=== PATIENT | female | born 1970 | race Caucasian/White ===

== ENCOUNTER 2018-07-12 18:18 | Emergency (ER) | payer BC, OTHER ==
[2018-07-12] MEDS ORDERED: Sodium Chloride 0.9% 2.5 ML Syringe FLUSH PRN (18:28)
[2018-07-12] MEDS ORDERED: Sodium Chloride 0.9% 10 ML Syringe FLUSH PRN (18:28)
--- NOTE | 2018-07-12 18:28 | EDM.PDOC ---
<Deedee Marquez - Last Filed: 07/12/18 18:57> ED HPI GENERAL MEDICAL PROBLEM - General Stated Complaint: CHEST PAINS Time Seen by Provider: 07/12/18 18:20 Source of Information: Reports: Patient History Limitations: Reports: No Limitations - History of Present Illness INITIAL COMMENTS - FREE TEXT/NARRATIVE: History of present illness: []She started having substernal, nonradiating chest pressure since 7 PM last night that has been continuous. At it's worst she rates it a 8/10 and is now 4/ 10. Does not have any known coronary artery disease but was diagnosed with a rapid heart beat in [place] in March. She was put on metoprolol at that time but did not start it until this month. She has been dealing with sinus drainage , she denies any abdominal pain, nausea, vomiting, fevers, chills or diarrhea. Review of systems: As per history of present illness and below otherwise all systems reviewed and negative. Past medical history: As per history of present illness and as reviewed below otherwise noncontributory. Surgical history: As per history of present illness and as reviewed below otherwise noncontributory. Social history: No reported history of drug or alcohol abuse. Family history: As per history of present illness and as reviewed below otherwise noncontributory. Physical exam: General: Well developed, well nourished in NAD HEENT: Atraumatic, normocephalic, pupils reactive, negative for conjunctival pallor or scleral icterus, mucous membranes moist, throat clear, neck supple, nontender, trachea midline. Lungs: Clear to auscultation, breath sounds equal bilaterally, chest with reproducible chest pain Heart: S1S2, regular, negative for clicks, rubs, or JVD. Abdomen: NABS, Soft, nondistended, nontender. Negative for masses or hepatosplenomegaly. Negative for costovertebral tenderness. Pelvis: Stable nontender. Genitourinary: Deferred. Rectal: Deferred. Extremities: Atraumatic, negative for cords or calf pain. Neurovascular unremarkable. Neuro: Awake, alert, oriented. Cranial nerves II through XII unremarkable. Cerebellum unremarkable. Motor and sensory unremarkable throughout. Exam nonfocal. Skin:warm and dry Diagnostics: EKG, CBC, chemistry, troponin, coags, chest x-ray Therapeutics: Aspirin, nitroglycerin ED Course: Patient is pain free after nitroglycerin. Patient is signed out to Dr. De La Garza to check results and disposition patient Impression: Chest pain Prescriptions: Nitroglycerin Plan: Definitive disposition and diagnosis as appropriate pending reevaluation and review of above. Chest Pain Score (Numeric/FACES): 4 - Related Data Allergies Allergy/AdvReac Type Severity Reaction Status Date / Time acetaminophen Allergy Rash Verified 07/12/18 18:27 [From Darvocet-N] propoxyphene Allergy Rash Verified 07/12/18 18:27 [From Darvocet-N] Home Meds: Home Meds Dapagliflozin Propanediol [Farxiga] 10 mg PO DAILY 07/12/18 [History] Dulaglutide [Trulicity] 1.5 mg SQ DAILY 07/12/18 [History] Insulin Degludec [Tresiba] 44 units DAILY 07/12/18 [History] Metoprolol Tartrate 12.5 mg PO BID 07/12/18 [History] Montelukast [Singulair] 1 tab DAILY 07/12/18 [History] Nitroglycerin [Nitrostat] 0.4 mg SL ASDIRECTED PRN #1 bottle 07/12/18 [Rx] atorvaSTATin [Lipitor] 10 mg PO DAILY 07/12/18 [History] ED ROS GENERAL - Review of Systems Review Of Systems: ROS reveals no pertinent complaints other than HPI. ED EXAM, GENERAL - Physical Exam Exam: See Below (The history of present illness) Course - Vital Signs Last Recorded V/S: Last Vital Signs Temp 36.3 C 07/12/18 18:51 Pulse 109 H 07/12/18 18:51 Resp 18 07/12/18 18:51 BP 121/70 07/12/18 18:51 Pulse Ox 94 L 07/12/18 18:51 - Orders/Labs/Meds Orders: Active Orders 24 hr Category Date Time Status Cardiac Monitoring [RC] . DIRECTED Care 07/12/18 18:29 Active EKG Documentation Completion [RC] STAT Care 07/12/18 18:29 Active Sodium Chloride 0.9% [Saline Flush] Med 07/12/18 18:28 Active 10 ml FLUSH ASDIRECTED PRN Sodium Chloride 0.9% [Saline Flush] Med 07/12/18 18:28 Active 2.5 ml FLUSH ASDIRECTED PRN Saline Lock Insert [OM.PC] Stat Oth 07/12/18 18:29 Ordered Medication Orders Sodium Chloride (Saline Flush) 10 ml FLUSH ASDIRECTED PRN PRN Reason: Keep Vein Open Sodium Chloride (Saline Flush) 2.5 ml FLUSH ASDIRECTED PRN PRN Reason: Keep Vein Open Labs: Laboratory Tests 07/12/18 07/12/18 07/12/18 Range/Units 18:35 18:35 18:35 WBC 5.49 (4.0-11.0) K/uL RBC 5.60 (4.30-5.90) M/uL Hgb 15.7 (12.0-16.0) g/dL Hct 45.4 (36.0-46.0) % MCV 81.1 (80.0-98.0) fL MCH 28.0 (27.0-32.0) pg MCHC 34.6 (31.0-37.0) g/dL RDW Std Deviation 39.2 (28.0-62.0) fl RDW Coeff of Stacy 13 (11.0-15.0) % Plt Count 128 L (150-400) K/uL MPV 9.60 (7.40-12.00) fL Neut % (Auto) 57.0 (48.0-80.0) % Lymph % (Auto) 26.4 (16.0-40.0) % Carlton % (Auto) 14.0 (0.0-15.0) % Eos % (Auto) 2.2 (0.0-7.0) % Baso % (Auto) 0.4 (0.0-1.5) % Neut # (Auto) 3.1 (1.4-5.7) K/uL Lymph # (Auto) 1.5 (0.6-2.4) K/uL Carlton # (Auto) 0.8 (0.0-0.8) K/uL Eos # (Auto) 0.1 (0.0-0.7) K/uL Baso # (Auto) 0.0 (0.0-0.1) K/uL Nucleated RBC % 0.0 /100WBC Nucleated RBCs # 0 K/uL INR 0.96 APTT 26.1 (18.6-31.3) SEC Sodium 143 (136-145) mmol/L Potassium 3.7 (3.5-5.1) mmol/L Chloride 106 (98-107) mmol/L Carbon Dioxide 29.0 (21.0-32.0) mmol/L BUN 14 (7.0-18.0) mg/dL Creatinine 0.7 (0.6-1.0) mg/dL Est Cr Clr Drug Dosing 80.42 mL/min Estimated GFR (MDRD) > 60.0 ml/min Glucose 143 H (74-106) mg/dL Calcium 8.9 (8.5-10.1) mg/dL Total Bilirubin 1.0 (0.2-1.0) mg/dL AST 9 L (15-37) IU/L ALT 31 (14-63) IU/L Alkaline Phosphatase 120 H (46-116) U/L Troponin I < 0.050 (0.000-0.056) ng/mL Total Protein 7.4 (6.4-8.2) g/dL Albumin 3.8 (3.4-5.0) g/dL Globulin 3.6 (2.6-4.0) g/dL Albumin/Globulin Ratio 1.1 (0.9-1.6) Meds: Medications Generic Name Dose Route Start Last Admin Trade Name Freq PRN Reason Stop Dose Admin Sodium Chloride 10 ml 07/12/18 18:28 Saline Flush FLUSH ASDIRECTED PRN Keep Vein Open Sodium Chloride 2.5 ml 07/12/18 18:28 Saline Flush FLUSH ASDIRECTED PRN Keep Vein Open Discontinued Medications Generic Name Dose Route Start Last Admin Trade Name Freq PRN Reason Stop Dose Admin Aspirin 324 mg 07/12/18 18:29 07/12/18 18:34 Aspirin PO 07/12/18 18:30 324 mg ONETIME ONE Administration Nitroglycerin 0.4 mg 07/12/18 18:31 07/12/18 18:47 Nitrostat SL 0.4 mg Q5M PRN Administration Chest Pain Departure - Departure Disposition: Home, Self-Care 01 Condition: Good Clinical Impression: Chest pain Prescriptions: Nitroglycerin [Nitrostat] 0.4 mg SL ASDIRECTED PRN #1 bottle PRN Reason: Pain Referrals: Jazmyn Ferguson NP [Primary Care Provider] - Additional Instructions: The following information is given to patients seen in the emergency department who are being discharged to home. This information is to outline your options for follow-up care. We provide all patients seen in our emergency department with a follow-up referral. The need for follow-up, as well as the timing and circumstances, are variable depending upon the specifics of your emergency department visit. If you don't have a primary care physician on staff, we will provide you with a referral. We always advise you to contact your personal physician following an emergency department visit to inform them of the circumstance of the visit and for follow-up with them and/or the need for any referrals to a consulting specialist. The emergency department will also refer you to a specialist when appropriate. This referral assures that you have the opportunity for follow-up care with a specialist. All of these measure are taken in an effort to provide you with optimal care, which includes your follow-up. Under all circumstances we always encourage you to contact your private physician who remains a resource for coordinating your care. When calling for follow-up care, please make the office aware that this follow-up is from your recent emergency room visit. If for any reason you are refused follow-up, please contact the [facility] Emergency Department at and asked to speak to the emergency department charge nurse. Take meds as directed, follow up with your primary care physician, return to ER if symptoms worsen or change. [facility] [address] [place] [id number] <Amanda De La Garza - Last Filed: 07/12/18 19:12> ED HPI GENERAL MEDICAL PROBLEM - History of Present Illness INITIAL COMMENTS - FREE TEXT/NARRATIVE: Testing results are within normal limits and per the direction of Dr. Marquez the patient will be discharged home. ED ROS GENERAL - Review of Systems Review Of Systems: ROS reveals no pertinent complaints other than HPI. ED EXAM, GENERAL - Physical Exam Exam: See Below Departure - Departure Time of Disposition: 19:12 Condition: Good
[2018-07-12] MEDS ORDERED: Aspirin 81 MG Tab.Chew PO ONE (18:29)
[2018-07-12] MEDS: Nitroglycerin 0.4 MG Tab.SL SL PRN ×3 (18:37→18:47)
--- NOTE | 2018-07-12 19:05 | CR ---
INDICATION: Chest pain and shortness of breath TECHNIQUE: Chest 1 view COMPARISON: None FINDINGS: Cardiovascular and mediastinum: Heart size and vasculature are normal in caliber and appearance. Lungs and pleural spaces: Lungs are clear. No sign of infiltrate or mass. No sign of pleural effusion. No pneumothorax. Bones and soft tissues: Status post open reduction internal fixation mid left clavicle. IMPRESSION: No acute cardiopulmonary abnormality. Dictated by Nico Isaac MD @ Jul 12 2018 7:03PM Signed by Dr. Nico Isaac @ Jul 12 2018 7:05PM
[2018-07-12 19:08] LABS: CHLORIDE,CL 106 mmol/L (98-107); SODIUM,NA 143 mmol/L (136-145)
== END 2018-07-12 19:30 | disposition home or self-care (01) ==
LOC: MW.ED 18:18
DX: R07.89 Other chest pain (principal); Z79.899 Other long term (current) drug therapy; Z79.4 Long term (current) use of insulin; Z88.6 Allergy status to analgesic agent; Z88.8 Allergy status to other drugs, medicaments and biological substances
CPT/HCPCS: 36415; 71045; 80053; 84484; 85025; 85610; 85730; 99285; A9270; 93005; 99283